=== PATIENT | male | born 2000 | race Caucasian/White ===

== ENCOUNTER 2018-07-28 06:30 | Day surgery (SDC) | payer OTHER, MEDICAID ==
[~2018-07-28] VITALS: Ht 165.1 cm; Wt 63.7 kg
[2018-07-28] MEDS ORDERED: RINGERS SOLUTION,LACTATED 1,000 ML IV ONE (06:40)
[2018-07-28] MEDS ORDERED: AMPICILLIN SODIUM 1 GM/VIAL ONE (06:48)
[2018-07-28] MEDS ORDERED: MIDAZOLAM HCL 5 MG/ML VIAL ONE (07:48)
[2018-07-28] MEDS ORDERED: DIVA125T32 GT (07:55)
[2018-07-28] MEDS ORDERED: PHEN50TA GT ×2 (07:55)
[2018-07-28] MEDS ORDERED: [UNRECOGNIZED DRUG - CODE] GT (07:55)
[2018-07-28] MEDS ORDERED: VITAD1000 GT (07:55)
[2018-07-28] MEDS ORDERED: LANS30TA4 GT (07:55)
[2018-07-28] MEDS ORDERED: PHEN12S PR (07:55)
[2018-07-28] MEDS ORDERED: LORA2ORA5 GT (07:55)
[2018-07-28] MEDS ORDERED: SENN8.8S6 PO (07:55)
[2018-07-28] MEDS ORDERED: LAMO100 GT (07:55)
[2018-07-28] MEDS ORDERED: ONDA4SOL GT (07:55)
[2018-07-28] MEDS ORDERED: BISA10S PR (07:55)
[2018-07-28] MEDS ORDERED: ACET325S8 PR (07:55)
[2018-07-28] MEDS ORDERED: LACT1POW11 GT (07:55)
[2018-07-28] MEDS ORDERED: MOME17N NASAL (07:55)
[2018-07-28] MEDS ORDERED: CBD DROPS TP (07:55)
[2018-07-28] MEDS: RINGERS SOLUTION,LACTATED 1,000 ML IV ONE (08:13)
[2018-07-28] MEDS ORDERED: MEPERIDINE-PF 25 MG/ML VIAL IVP PRN (10:00)
[2018-07-28] MEDS ORDERED: HYDROmorphone 2 MG/ML SYRINGE IVP PRN (10:00)
[2018-07-28] MEDS ORDERED: FentaNYL CITRATE-PF 100 MCG/2 ML VIAL IVP PRN (10:00)
[2018-07-28] MEDS ORDERED: DEXAMETHASONE SOD PHOS 4 MG/ML VIAL IVP ONE (12:00)
[2018-07-28] MEDS ORDERED: KETAMINE HCL 50 MG/ML 10 ML VIAL IVP ONE (12:00)
[2018-07-28] MEDS ORDERED: PROPOFOL 1% 20 ML VIAL IVP ONE (12:00)
[2018-07-28] MEDS ORDERED: ROCURONIUM BROMIDE 10 MG/ML 5 ML VIAL IVP ONE (12:00)
[2018-07-28] MEDS ORDERED: LIDOCAINE/PF 2% 5 ML VIAL INJ ONE (12:00)
[2018-07-28] MEDS ORDERED: OXYGEN THERAPY IH SCH (20:00)
== END 2018-07-28 11:54 | disposition home or self-care (01) ==
LOC: SURGERY 06:30
PROVIDERS: ATTEND Dentist General Practice
DX: K06.1 Gingival enlargement (principal); G40.909 Epilepsy, unspecified, not intractable, without status epilepticus; K21.9 Gastro-esophageal reflux disease without esophagitis; Z79.899 Other long term (current) drug therapy; Z93.1 Gastrostomy status
CPT/HCPCS: 41899; J0290; J1100; J2250; J2704; J3490 ×3; J7120

== ENCOUNTER 2020-01-11 06:41 | Day surgery (SDC) | payer OTHER ==
[~2020-01-11] VITALS: Ht 175.3 cm; Wt 60.9 kg
[~2020-01-11 06:41] MED LIST: ACET325S8 PR; BISA10SU11 PR; CBD DROPS TP; CHOL100018 GT; DIVA125T32 GT; LACT1POW11 GT; LAMO100 GT; LANS30TA15 GT; LORA2ORA5 GT; MOME17N NASAL; ONDA4SOL GT; PHEN12S PR; PHEN50TA GT; RINGERS SOLUTION,LACTATED 1,000 ML IV ONE; SENN8.8S6 PO; [UNRECOGNIZED DRUG - CODE] GT
[2020-01-11 08:24] LABS: INR 1.1 (0.9-1.1); PROTHROMBIN TIME 11.1 SEC (9.4-11.6)
[2020-01-11] MEDS ORDERED: AMPICILLIN SODIUM 1 GM/VIAL ONE (08:33)
== END 2020-01-11 14:35 | disposition home or self-care (01) ==
LOC: SURGERY 06:41
PROVIDERS: ATTEND Dentist General Practice
DX: K05.30 Chronic periodontitis, unspecified (principal); Z11.59 Encounter for screening for other viral diseases; F63.81 Intermittent explosive disorder; G40.909 Epilepsy, unspecified, not intractable, without status epilepticus; F41.9 Anxiety disorder, unspecified; K21.9 Gastro-esophageal reflux disease without esophagitis; Z88.8 Allergy status to other drugs, medicaments and biological substances
CPT/HCPCS: 36415; 41899; 71045; 85610; 85730; 87635; 93005; J0290; J7120

== ENCOUNTER 2021-03-13 07:09 | Day surgery (SDC) | payer OTHER ==
[~2021-03-13] VITALS: Ht 177.8 cm; Wt 61.4 kg
[~2021-03-13 07:09] MED LIST changes: -PHEN12S PR; +PROM12.511 PR; +SENN8.8S6 GT; -SENN8.8S6 PO
[2021-03-13] MEDS ORDERED: MIDAZOLAM HCL 2 MG/2 ML VIAL IVP ONE (07:10)
[2021-03-13] MEDS ORDERED: LIDOCAINE/PF 2% 5 ML SYRINGE IVP ONE (07:10)
[2021-03-13] MEDS ORDERED: PROPOFOL 1% 20 ML VIAL IVP ONE (07:10)
[2021-03-13] MEDS ORDERED: ROCURONIUM BROMIDE 10 MG/ML 5 ML VIAL IVP ONE (07:10)
[2021-03-13] MEDS ORDERED: ONDANSETRON HCL 4 MG/2 ML VIAL IVP ONE (07:10)
[2021-03-13] MEDS ORDERED: FentaNYL CITRATE PF 100 MCG/2 ML VIAL IVP ONE (07:10)
[2021-03-13] MEDS ORDERED: DEXAMETHASONE SOD PHOS 4 MG/ML VIAL IVP ONE (07:10)
[2021-03-13] MEDS ORDERED: RINGERS SOLUTION,LACTATED 1,000 ML IV ONE ×2 (07:30→12:10)
[2021-03-13] MEDS ORDERED: AMPICILLIN SODIUM 2 GM/NS 100 ML IV ONE (07:45)
[2021-03-13 07:56] LABS: BASOPHILS % (AUTO) 0.6 % (0.0-2.0); EOSINOPHILS % (AUTO) 1.3 % (1.0-6.0); HEMATOCRIT 45.2 % (41-53); HEMOGLOBIN 15.6 g/dL (13.5-17.5); LYMPHOCYTES # (AUTO) 2.2 K/uL (1.0-4.8); LYMPHOCYTES % (AUTO) 44.2 % (22.0-44.0); MEAN CORPUSCULAR HEMOGLOBIN 33.6 pg (26.0-34.0); MEAN CORPUSCULAR HGB CONC 34.5 G/dL (31.0-37.0); MEAN CORPUSCULAR VOLUME 97 fL (80-100); MONOCYTES # (AUTO) 0.5 K/uL (0.1-1.0); MONOCYTES % (AUTO) 11.2 % (2.0-9.0); NEUTROPHILS # (AUTO) 2.1 K/uL (1.8-7.7); NEUTROPHILS % (AUTO) 42.7 % (40.0-70.0); PLATELET COUNT (AUTO) 215 K/uL (150-450); RED BLOOD CELL COUNT(AUTO) 4.64 MIL/uL (4.50-5.90); RED CELL DISTRIBUTION WIDTH 12.5 % (11.5-14.5)
[2021-03-13 07:59] LABS: COVID AG,FIA SOURCE NASOPHARYNGEAL
[2021-03-13 08:06] LABS: ANION GAP 3 mmol/L (8-16); CALCIUM, TOTAL 9.2 mg/dL (8.8-10.5); CARBON DIOXIDE 29 mmol/L (22-29); CHLORIDE 102 mmol/L (98-107); CREATININE 0.71 mg/dL (0.60-1.30); GLOMERULAR FILTR. RATE CALC > 60 mL/min (>60); GLUCOSE,RANDOM 84 mg/dL (70-110); POTASSIUM 3.8 mmol/L (3.5-5.1); SODIUM SERUM 134 mmol/L (136-145); UREA NITROGEN, BLOOD 14 mg/dL (7-18)
[2021-03-13 08:12] LABS: ALANINE AMINOTRANSFERASE 36 U/L (12-78); ALBUMIN 4.4 g/dL (3.4-5.0); ALKALINE PHOSPHATASE 76 U/L (46-116); ASPARTATE AMINOTRANSFERASE 16 U/L (15-37); BILIRUBIN,TOTAL 0.4 mg/dL (0.1-1.0); TOTAL PROTEIN, SERUM 8.4 g/dL (6.4-8.2)
[2021-03-13] MEDS ORDERED: QUET200T GT (08:45)
[2021-03-13] MEDS ORDERED: ERYT250C69 PO (08:45)
[2021-03-13] MEDS ORDERED: MIRT-89 GT (08:45)
[2021-03-13] MEDS ORDERED: CANN100S GT (08:48)
[2021-03-13 09:01] LABS: PROTHROMBIN TIME 10.9 SEC (9.4-11.6)
[2021-03-13] MEDS ORDERED: DEXAMETHASONE SOD PHOS 4 MG/ML VIAL ONE (11:19)
== END 2021-03-13 13:40 | disposition home or self-care (01) ==
LOC: SURGERY 07:09
PROVIDERS: ATTEND Dentist General Practice
DX: K02.9 Dental caries, unspecified (principal); K05.30 Chronic periodontitis, unspecified; K03.6 Deposits [accretions] on teeth; K06.1 Gingival enlargement; K00.6 Disturbances in tooth eruption; F79 Unspecified intellectual disabilities; G40.909 Epilepsy, unspecified, not intractable, without status epilepticus; K21.9 Gastro-esophageal reflux disease without esophagitis; K59.00 Constipation, unspecified; F63.81 Intermittent explosive disorder; F41.9 Anxiety disorder, unspecified; Z79.899 Other long term (current) drug therapy; Z98.890 Other specified postprocedural states; F84.0 Autistic disorder; G80.9 Cerebral palsy, unspecified; Z79.01 Long term (current) use of anticoagulants
CPT/HCPCS: 36415; 41899; 71045; 80053; 85025; 85610; 85730; 87426; 93005; C9803; J0290; J1100; J2250; J2405; J2704; J3010; J3490 ×2; J7120

== ENCOUNTER 2022-07-16 06:25 | Day surgery (SDC) | payer OTHER ==
[~2022-07-16] VITALS: Ht 177.8 cm; Wt 61.4 kg
[~2022-07-16 06:25] MED LIST changes: +CANN100S GT; -CBD DROPS TP; -DIVA125T32 GT; +ERYT250C69 PO; +MIRT-89 GT; +QUET200T GT; -RINGERS SOLUTION,LACTATED 1,000 ML IV ONE; +SENN8.8S31 GT; -SENN8.8S6 GT
[2022-07-16] MEDS ORDERED: LIDOCAINE/PF 2% 5 ML VIAL IM ONE (06:26)
[2022-07-16] MEDS ORDERED: ONDANSETRON HCL 4 MG/2 ML VIAL IVP ONE (06:26)
[2022-07-16] MEDS ORDERED: PROPOFOL 1% 20 ML VIAL IVP ONE (06:26)
[2022-07-16] MEDS ORDERED: MIDAZOLAM HCL 2 MG/2 ML VIAL IVP ONE (06:26)
[2022-07-16] MEDS ORDERED: ROCURONIUM BROMIDE 10 MG/ML 5 ML VIAL IVP ONE (06:26)
[2022-07-16] MEDS ORDERED: FentaNYL CITRATE PF 100 MCG/2 ML VIAL IVP ONE (06:26)
[2022-07-16 07:24] LABS: COVID AG,FIA SOURCE NASAL SWAB
[2022-07-16 07:40] LABS: PROTHROMBIN TIME 10.7 SEC (9.4-11.6)
[2022-07-16] MEDS ORDERED: RINGERS SOLUTION,LACTATED 1,000 ML IV ONE ×2 (08:30→09:00)
[2022-07-16] MEDS ORDERED: AMPICILLIN SODIUM 2 GM/NS 100 ML IV ONE (08:48)
== END 2022-07-16 13:20 | disposition home or self-care (01) ==
LOC: SURGERY 06:25
PROVIDERS: ATTEND Dentist General Practice
DX: K02.9 Dental caries, unspecified (principal); K05.30 Chronic periodontitis, unspecified; K21.9 Gastro-esophageal reflux disease without esophagitis; F41.9 Anxiety disorder, unspecified; F63.81 Intermittent explosive disorder; F79 Unspecified intellectual disabilities; K59.00 Constipation, unspecified; G40.909 Epilepsy, unspecified, not intractable, without status epilepticus; Z20.822 Contact with and (suspected) exposure to COVID-19; Z79.899 Other long term (current) drug therapy; Z88.8 Allergy status to other drugs, medicaments and biological substances; Z91.040 Latex allergy status; Z98.890 Other specified postprocedural states
CPT/HCPCS: 41899; 71045; 87426; 85610; 85730; 36415; 93005; J0290; J2704; J3010; J3490 ×2; J2250; J2405; J7120; C9803

== ENCOUNTER 2023-11-04 06:30 | Day surgery (SDC) | payer OTHER ==
[~2023-11-04] VITALS: Ht 175.3 cm; Wt 62.2 kg
[~2023-11-04 06:30] MED LIST changes: +ERYT250C69; -ERYT250C69 PO; +LAMO-24 GT; -LAMO100 GT
[2023-11-04] MEDS ORDERED: SUGAMMADEX SODIUM 200 MG/2 ML VIAL IVP ONE (06:31)
[2023-11-04] MEDS ORDERED: LIDOCAINE/PF 2% 5 ML VIAL IM ONE (06:31)
[2023-11-04] MEDS ORDERED: PROPOFOL 1% 20 ML VIAL IVP ONE (06:31)
[2023-11-04] MEDS ORDERED: ONDANSETRON HCL 4 MG/2 ML VIAL IVP ONE (06:31)
[2023-11-04] MEDS ORDERED: FentaNYL CITRATE PF 100 MCG/2 ML VIAL IVP ONE (06:31)
[2023-11-04] MEDS ORDERED: DEXAMETHASONE SOD PHOS 4 MG/ML VIAL IVP ONE (06:31)
[2023-11-04] MEDS ORDERED: ROCURONIUM BROMIDE 10 MG/ML 5 ML VIAL IVP ONE (06:31)
[2023-11-04] MEDS ORDERED: AMPICILLIN SODIUM 2 GM/NS 100 ML IV ONE (08:00)
[2023-11-04] MEDS ORDERED: POLY17PO47 PO (10:15)
[2023-11-04] MEDS ORDERED: DIAZ10SP (10:15)
[2023-11-04] MEDS ORDERED: LORA10TA7 PO (10:15)
[2023-11-04] MEDS: RINGERS SOLUTION,LACTATED 1,000 ML IV ONE (11:34)
== END 2023-11-04 13:40 | disposition home or self-care (01) ==
LOC: SURGERY 06:30
PROVIDERS: ATTEND Dentist General Practice
DX: K02.9 Dental caries, unspecified (principal); K03.6 Deposits [accretions] on teeth; K05.30 Chronic periodontitis, unspecified; F41.9 Anxiety disorder, unspecified; K21.9 Gastro-esophageal reflux disease without esophagitis; G40.909 Epilepsy, unspecified, not intractable, without status epilepticus; K59.00 Constipation, unspecified; F63.81 Intermittent explosive disorder; G80.9 Cerebral palsy, unspecified; Z98.890 Other specified postprocedural states; Z79.899 Other long term (current) drug therapy
CPT/HCPCS: 41899; 71045; 93005; J0290; J2704; J1100; J3010; J3490 ×2; J2405; Q9967

== ENCOUNTER 2024-05-31 05:55 | Day surgery (SDC) | payer OTHER ==
[~2024-05-31] VITALS: Ht 177.8 cm; Wt 50.1 kg
[~2024-05-31 05:55] MED LIST changes: -CHOL100018 GT; +DIAZ10SP; -ERYT250C69; +ERYT250C70; +LORA10TA7 PO; +POLY17PO47 PO
[2024-05-31] MEDS ORDERED: SUGAMMADEX SODIUM 200 MG/2 ML VIAL IVP ONE (05:56)
[2024-05-31] MEDS ORDERED: PROPOFOL 1% 20 ML VIAL IVP ONE (05:56)
[2024-05-31] MEDS ORDERED: ROCURONIUM BROMIDE 10 MG/ML 5 ML VIAL IVP ONE (05:56)
[2024-05-31] MEDS ORDERED: MIDAZOLAM HCL 2 MG/2 ML VIAL IVP ONE (05:56)
[2024-05-31] MEDS ORDERED: DEXAMETHASONE SOD PHOS 4 MG/ML VIAL IVP ONE (05:56)
[2024-05-31] MEDS ORDERED: ONDANSETRON HCL 4 MG/2 ML VIAL IVP ONE (05:56)
[2024-05-31] MEDS ORDERED: LIDOCAINE/PF 2% 5 ML VIAL IM ONE (05:56)
[2024-05-31] MEDS ORDERED: AMPICILLIN SODIUM 2 GM/NS 100 ML IV ONE (07:11)
[2024-05-31] MEDS ORDERED: RINGERS SOLUTION,LACTATED 1,000 ML IV ONE (07:34)
[2024-05-31 08:28] LABS: PROTHROMBIN TIME 10.3 SEC (9.4-11.6)
[2024-05-31] MEDS ORDERED: OXYMETAZOLINE HCL 0.05% 15 ML NASAL SPRAY NASAL ONE (10:48)
[2024-05-31] MEDS: RINGERS SOLUTION,LACTATED 1,000 ML IV ONE (13:14)
== END 2024-05-31 13:10 | disposition home or self-care (01) ==
LOC: SURGERY 05:55
PROVIDERS: ATTEND Dentist General Practice
DX: K02.9 Dental caries, unspecified (principal); K05.20 Aggressive periodontitis, unspecified; K03.6 Deposits [accretions] on teeth; K06.1 Gingival enlargement; G80.9 Cerebral palsy, unspecified; Z79.899 Other long term (current) drug therapy; Z93.1 Gastrostomy status; Z98.890 Other specified postprocedural states; Z91.040 Latex allergy status
CPT/HCPCS: 41899; 71045; 85610; 85730; 36415; 93005; J0290; J2704; J1100; J3490 ×3; J2250; J2405; J7120; Z7610

== ENCOUNTER 2025-01-04 06:11 | Day surgery (SDC) | payer OTHER ==
[~2025-01-04] VITALS: Ht 177.8 cm; Wt 66.8 kg
[~2025-01-04 06:11] MED LIST changes: -DIAZ10SP; +DIAZ10SP2
[2025-01-04] MEDS ORDERED: RINGERS SOLUTION,LACTATED 1,000 ML IV ONE ×2 (06:30→07:43)
[2025-01-04] MEDS ORDERED: AMPICILLIN SODIUM 2 GM/NS 100 ML IV ONE (07:45)
[2025-01-04 07:49] LABS: PROTHROMBIN TIME 10.8 SEC (9.4-11.6)
[2025-01-04] MEDS ORDERED: BACITRACIN 28 GM OINTMENT TP ONE (09:46)
[2025-01-04] MEDS ORDERED: EPHEDrine SULFATE 50 MG/ML VIAL ONE (12:00)
[2025-01-04] MEDS ORDERED: DEXAMETHASONE SOD PHOS 4 MG/ML VIAL ONE (12:00)
[2025-01-04] MEDS ORDERED: ROCURONIUM BROMIDE 10 MG/ML 5 ML VIAL ONE (12:00)
[2025-01-04] MEDS ORDERED: LIDOCAINE/PF 2% 5 ML VIAL ONE (12:00)
[2025-01-04] MEDS ORDERED: PROPOFOL 1% 20 ML VIAL IVP ONE (12:00)
[2025-01-04] MEDS ORDERED: ONDANSETRON HCL 4 MG/2 ML VIAL ONE (12:00)
[2025-01-04] MEDS ORDERED: SUGAMMADEX SODIUM 200 MG/2 ML VIAL IVP ONE (12:00)
== END 2025-01-04 12:10 | disposition home or self-care (01) ==
LOC: SURGERY 06:11
PROVIDERS: ATTEND Dentist General Practice
DX: K05.30 Chronic periodontitis, unspecified (principal); K02.9 Dental caries, unspecified; F41.9 Anxiety disorder, unspecified; F63.81 Intermittent explosive disorder; K21.9 Gastro-esophageal reflux disease without esophagitis; G40.909 Epilepsy, unspecified, not intractable, without status epilepticus; K59.00 Constipation, unspecified; F72 Severe intellectual disabilities; Z79.01 Long term (current) use of anticoagulants; Z79.899 Other long term (current) drug therapy; Z98.890 Other specified postprocedural states; G80.8 Other cerebral palsy
CPT/HCPCS: 41899; 71045; 85610; 85730; 36415; J0290; J2704; J1100; J3490 ×4; J2405; J7120